=== PATIENT | female | born 1985 | race Caucasian/White ===

== ENCOUNTER 2022-01-13 10:21 | Outpatient (CLI) | payer BC, SELFPAY ==
[2022-01-13 12:21] LABS: Cholesterol* 235 mg/dL (90-199); Triglycerides* 128 mg/dL (40-149)
[2022-01-13 12:22] LABS: HDL Cholesterol* 50 mg/dL (>=50); LDL Cholesterol Calculated 159 mg/dL (<100)
[2022-01-13 14:16] LABS: HIV 1/2/P24 Combo Screen* Negative (Negative)
[2022-01-13 14:17] LABS: Hepatitis B Surface Antigen* Negative (Negative)
[2022-01-13 20:19] LABS: Chlamydia DNA Amplified* Not Detected (No Detected); GC DNA Amplified* Not Detected (No Detected)
[2022-01-13 22:15] LABS: Glucose* 105 mg/dL (60-115)
[2022-01-14 21:49] LABS: Rapid Plasma Reagin (RPR) Non Reactive (Non Reactive)
== END 2022-01-13 10:22 | disposition home or self-care (01) ==
PROVIDERS: Visit Provider Physician Assistant
DX: Z01.419 Encounter for gynecological examination (general) (routine) without abnormal findings (principal); E66.9 Obesity, unspecified; B36.0 Pityriasis versicolor; Z11.3 Encounter for screening for infections with a predominantly sexual mode of transmission; Z13.6 Encounter for screening for cardiovascular disorders; Z13.1 Encounter for screening for diabetes mellitus
CPT/HCPCS: 80061; 82947; 86592; 86593; 86703; 86706; 87340; 87341; 87491; 87591

== ENCOUNTER 2023-01-11 13:03 | Outpatient (CLI) | payer OTHER, SELFPAY | END 2023-01-11 13:04 | disposition home or self-care (01) | LOC: NFLDREF 01-13 09:09 | PROVIDERS: PCP Physician Assistant Medical; Referring Provider Physician Assistant Medical; Visit Provider Physician Assistant Medical | DX: R30.0 Dysuria (principal); N89.8 Other specified noninflammatory disorders of vagina; N30.00 Acute cystitis without hematuria; N76.0 Acute vaginitis; B96.89 Other specified bacterial agents as the cause of diseases classified elsewhere | CPT/HCPCS: 87086 ==